=== PATIENT | male | born 1980 | race Caucasian/White ===

== ENCOUNTER 2017-12-18 05:34 | Day surgery (SDC) | payer OTHER ==
[2017-12-15 12:48] VITALS: BMI 28.0
[~2017-12-18 05:34] MED LIST: HEPARIN SODIUM,PORCINE 5,000 UNIT/ML 1 ML VIAL SQ ONE; ceFAZolin IN SWFI 2 GM/20 ML SYRINGE IVP ONE
[2017-12-18] MEDS ORDERED: fentaNYL (PF) 50 MCG/ML 2 ML AMP IV PRN (05:39)
[2017-12-18] MEDS ORDERED: MIDAZOLAM 2 MG/2 ML VIAL IV PRN (05:39)
[2017-12-18] MEDS ORDERED: ONDANSETRON 4 MG/2 ML VIAL IVP ONE (05:39)
[2017-12-18] MEDS ORDERED: DEXAMETHASONE SOD PHOSPHATE 10 MG/ML 1 ML VIAL IV ONE (05:39)
[2017-12-18] MEDS ORDERED: SCOPOLAMINE 1.5MG/72HR PATCH TRANSDERM ONE (05:39)
[2017-12-18] MEDS ORDERED: LIDOCAINE 1% 20 ML VIAL (10MG/ML) FOR IV START INTRADERMA ONE (06:38)
[2017-12-18] MEDS: LACTATED RINGERS 1,000 ML IV SCH ×2 (06:40→06:41)
--- NOTE | 2017-12-18 06:58 | P.GSHP ---
History of Present Illness H&P Date: 12/18/17 CHIEF COMPLAINT: Inguinal hernia, left HISTORY OF PRESENT ILLNESS: The patient is a 37-year-old male who presents with a history of swelling and pain along the left groin. Now he presents for repair of his inguinal hernia. PAST MEDICAL HISTORY: Please see list. PAST SURGICAL HISTORY: Please see list. MEDICATIONS: Please see list. ALLERGIES: Please see list. SOCIAL HISTORY: No illicit drug use FAMILY HISTORY: No reports of Crohn disease or ulcerative colitis. REVIEW OF ORGAN SYSTEMS: CONSTITUTIONAL: No reports of fevers or chills. No reports of weight loss despite prior attempts. GI: Denies any blood in stools or constipation. PHYSICAL EXAM: VITAL SIGNS: Stable GENERAL: Well-developed pleasant male in no acute distress. HEENT: No scleral icterus. Extraocular movements grossly intact. Moist buccal mucosa. NECK: Supple without lymphadenopathy. CHEST: Unlabored respirations. Equal bilateral excursions. CARDIOVASCULAR: Regular rate and rhythm. Distal 2+ pulses. ABDOMEN: Soft, nondistended. No peritoneal signs. Palpable defect of the left groin. MUSCULOSKELETAL: No clubbing, cyanosis, or edema. ASSESSMENT: 1. Inguinal hernia, left PLAN: 1. Recommend proceeding with a robotic inguinal repair with mesh with possible bilateral approach. 2. Benefits and risks of surgical intervention was discussed including possibility of open technique. 3. DVT prophylaxis. 4. Antibiotic prophylaxis. Past Medical History Additional Past Medical History / Comment(s): LT INGUINAL HERNIA. History of Any Multi-Drug Resistant Organisms: None Reported Past Surgical History: No Surgical Hx Reported Past Anesthesia/Blood Transfusion Reactions: No Reported Reaction Additional Past Anesthesia/Blood Transfusion Reaction / Comment(s): NO PREVIOUS ANESTHESIA Smoking Status: Current every day smoker - Past Family History Mother Family Medical History: Cancer Medications and Allergies Home Medications Medication Instructions Recorded Confirmed Type No Known Home Medications [No 12/15/17 12/18/17 History Known Home Medications] Allergies Allergy/AdvReac Type Severity Reaction Status Date / Time No Known Allergies Allergy Verified 12/18/17 06:03 Surgical - Exam Vital Signs Temp Pulse Resp BP Pulse Ox 97.9 F 81 16 150/96 99 12/18/17 06:35 12/18/17 06:35 12/18/17 06:35 12/18/17 06:35 12/18/17 06:35
[2017-12-18] MEDS ORDERED: HYDROmorphone (PF) 1 MG/ML ONE (07:00)
[2017-12-18] MEDS ORDERED: SUCCINYLCHOLINE CHLORIDE 100 MG/5 ML SYR IV ONE (07:00)
[2017-12-18] MEDS ORDERED: fentaNYL (PF) 50 MCG/ML 2 ML AMP ONE (07:00)
[2017-12-18] MEDS ORDERED: MIDAZOLAM 2 MG/2 ML VIAL ONE (07:00)
[2017-12-18] MEDS ORDERED: LIDOCAINE 1% INJ 10MG/ML (20 ML MDV) ONE (07:00)
[2017-12-18] MEDS ORDERED: GLYCOPYRROLATE 0.2 MG/ML 2 ML VIAL ONE (07:00)
[2017-12-18] MEDS ORDERED: NEOSTIGMINE 1 MG/ML 10 ML VIAL ONE (07:00)
[2017-12-18] MEDS ORDERED: ROCURONIUM BROMIDE 10 MG/ML 10 ML VIAL IV ONE (07:00)
[2017-12-18] MEDS ORDERED: KETOROLAC 30 MG/ML 1 ML VIAL ONE (07:00)
[2017-12-18] MEDS ORDERED: PROPOFOL 10 MG/ML 20 ML VIAL IV ONE (07:00)
[2017-12-18] MEDS ORDERED: BUPIVACAINE (PF) 0.25% 30 ML VIAL SQ ONE ×2 (07:37→09:16)
[2017-12-18 09:41] VITALS: TEMP 97.7
--- NOTE | 2017-12-18 09:46 | P.PCN ---
Date of Procedure: 12/18/17 Preoperative Diagnosis: Initial left inguinal hernia, type IV involving colon and intestine, incarcerated Postoperative Diagnosis: Same Procedure(s) Performed: Robotic-assisted repair of large left inguinal hernia using ventral light mesh 11.4 cm with reduction, lysis of adhesions Implants: Ventralight ST mesh 11.4 cm circular Anesthesia: GETA, local Surgeon: Sharona Arroyo Estimated Blood Loss (ml): 10 Pathology: other (Left inguinal hernia sac) Condition: stable Disposition: floor Operative Findings: 1. Incarcerated left inguinal hernia, 30 x 40 cm hernia sac
[2017-12-18] MEDS ORDERED: HYDROmorphone 0.5 MG/0.5 ML SYRINGE IVP ONE ×2 (09:47→10:06)
[2017-12-18 10:09] VITALS: RESP 16
[2017-12-18] MEDS ORDERED: LABETALOL 5 MG/ML VIAL MDV IVP ONE (10:22)
[2017-12-18] MEDS ORDERED: HYDROcodone/APAP 5-325MG 1 EACH TAB PO ONE (11:01)
[2017-12-18 11:43] VITALS: BP 145/95; PULSE 89
--- NOTE | 2018-01-10 20:37 | P.OP ---
Date of Procedure: 12/18/17 Description of Procedure: Date of Procedure: 12/18/17 SURGEON: SHARONA ARROYO MD PREOPERATIVE DIAGNOSES: 1. Left inguinal hernia, initial 2. Tobacco use. POSTOPERATIVE DIAGNOSES: 1. Initial left inguinal hernia, type IV involving colon and intestine, incarcerated and direct 2. Tobacco use. OPERATION: 1. Robotic assisted da Muriel Xi laparoscopic lysis of adhesions over 1.5 hrs. 2. Robotic assisted da Muriel Xi laparoscopic left inguinal hernia repair with ventralight ST mesh, 11.4 cm. ANESTHESIA: General with local anesthetic Implants: Ventralight ST mesh 11.4 cm circular Pathology: other (Left inguinal hernia sac) ESTIMATED BLOOD LOSS: 10 mL. SPECIMENS REMOVED: None. COMPLICATIONS: None. Operative Findings: 1. Incarcerated left inguinal hernia, 30 x 40 cm hernia sac INDICATIONS: The patient is a 37-year-old gentleman who presents with history of initial left groin hernia the size of a watermelon. Now he presents for definitive surgical intervention. Laparoscopic versus open and robotic approaches were discussed. Benefits and risks including bleeding, infection, injury to the vas deferens as well as sterility and chronic groin pain were reviewed. Placement of mesh was also described. Informed consent was obtained. DESCRIPTION: The patient was brought to the operating room and initially laid in supine position. He physically had helped reduce the very large hernia sac prior to induction. After general induction, the abdomen had been prepped and draped in standard sterile fashion. Ioban draping was also placed. Prior to incision, a timeout protocol was confirmed with surgical team regarding patient's name including procedures to be performed and location along the left groin. Initial positioning for the robotic assisted ports were selected whereby 20 cm superior to the target anatomy, 0 degree 5 mm laparoscopic trocar entry was performed at the left upper quadrant. The abdomen was insufflated to 15 mmHg which he had tolerated well. Diagnostic laparoscopy demonstrated moderate omental adhesions involving the left groin consistent with a direct hernia. Additionally the sigmoid colon was adherent to the left groin with a large direct left inguinal hernia over 5 cm in size. The right groin had less than 2 cm albeit direct inguinal hernia for which he was asymptomatic. Next, along the epigastrium, 8 mm robot trocar was placed. An 8-mm robotic trocar was placed under direct visualization at the right upper quadrant. The 5 mm port was exchanged for an 8 mm trocar. All trocars were positioned 8 to 10-cm from each other. The [employer] XI robot was primed, draped, prepared for docking along the left side of the patient. I then went to the [employer] console. The warehouse administrative assistant was at bedside for exchange of the robot arms and equipment. Attention was brought to the left groin where peritoneal adhesions were identified incorporating the greater omentum and addressed using sharp dissection with a scissor and cautery for over 30 minutes. At the left groin, over 5 cm direct inguinal hernia was identified. To address the extremely large left inguinal hernia, external pressure was placed along the left scrotal and groin by the surgical instrument repair specialist. The hernia sac extended to the ascending the left scrotum. Extensive lysis of adhesions over 1.5 hours was performed to completely reduce and excise the hernia sac. The hernia sac was evaginated whereby the peritoneum was scored using Endo scissors with cautery. The hernia sac had reached to the scrotum and was transected using Ligasure. Once completely reduced into the abdominal cavity, the peritoneal sac of the hernia was stripped without a lipoma identified. The sac was resected and then passed off for further pathological analysis. The size of the hernia defect was 5 cm with intraoperative films obtained. Using a 2-0 VLOC, the peritoneal defect of the left inguinal hernia site was closed using a purse string suture. The defect was found to be completely closed with complete reduction of the left inguinal hernia was confirmed. As an onlay, an 11.[address] mesh by [employer] was entered into the abdominal cavity via the 8 mm trocar. The mesh was tacked to the pelvis using 2 -0 VLOC x 9-inch length sutures. The robot was undocked from the patient's bedside. I then rescrubbed into the case. Insufflation was released from the abdominal cavity and all instruments were removed from the abdominal cavity. Additional palm pressure was applied along the left groin as well as releasing any air along the scrotum and left groin. The rest of incisions were reapproximated using 4-0 Monocryl in a running subcuticular fashion. Local anesthetic was placed along the incision including for a groin block. Incisions were cleansed using dilute hydrogen peroxide. Liquid was applied to the skin. A jockstrap was placed. At the end of the procedure, the needle, sponge and instrument counts had been verified correct by the surgical instrument repair specialist. The patient had tolerated the procedure well and was taken to the postanesthesia care unit in stable condition. Plan - Discharge Summary New Discharge Prescriptions: New Docusate [Colace] 100 mg PO DAILY #20 capsule HYDROcodone/APAP 5-325MG [[place] 5-325] 1 tab PO Q4HR PRN 3 Days #18 tab PRN Reason: Pain Discharge Medication List Docusate [Colace] 100 mg PO DAILY #20 capsule 12/18/17 [Rx] HYDROcodone/APAP 5-325MG [[place] 5-325] 1 tab PO Q4HR PRN 3 Days #18 tab [Rx] Follow up Appointment(s)/Referral(s): Sharona Arroyo MD [STAFF PHYSICIAN] - 12/24/17 10:15 am Patient Instructions/Handouts: *Surgery [facility] - (Anesthesia) Discharge Instructions Outpatient Surgery, Laparoscopic Herniorrhaphy (DC), Inguinal Hernia (GEN), Inguinal Hernia Repair (DC) Activity/Diet/Wound Care/Special Instructions: No lifting over 4 pounds in 4 weeks. Wear scrotal support daily. Expect swelling and bruising. May shower. No bath tub soaks. Discharge Disposition: HOME SELF-CARE
== END 2017-12-18 12:02 | disposition home or self-care (01) ==
LOC: OR 05:34
PROVIDERS: ATTEND Surgery Plastic and Reconstructive Surgery
DX: K40.30 Unilateral inguinal hernia, with obstruction, without gangrene, not specified as recurrent (principal); K66.0 Peritoneal adhesions (postprocedural) (postinfection); F17.210 Nicotine dependence, cigarettes, uncomplicated
CPT/HCPCS: 49650; S2900; 88302

== ENCOUNTER → 2018-01-05 | Outpatient (CLI) | payer OTHER ==
--- NOTE | 2018-01-06 08:32 | CT ---
EXAMINATION TYPE: CT pelvis wo con DATE OF EXAM: 01/05/2018 COMPARISON: NONE HISTORY: recent hernia repair, c/o swelling and fluid retention CT DLP: 883 mGycm Automated exposure control for dose reduction was used. FINDINGS: Loops of bowel without oral contrast are unremarkable. The appendix is normal and air-filled. Urinary bladder appears normal. Prostate contains calcification. There is a large left inguinal hernia containing mesenteric fat. Fluid is within the lower portion of single hernia extending towards the left hemiscrotum. This appears fluid like and abscess is conside red unlikely. There are scattered small inguinal lymph nodes present bilaterally. The osseous structures appear normal. IMPRESSION: LEFT INGUINAL HERNIA WITH MESENTERIC FAT. BOWEL IS NOT IDENTIFIED IN HERNIA. THERE IS A LARGE FLUID C OLLECTION EXTENDING INTO THE LEFT HEMISCROTUM.
== END | disposition home or self-care (01) ==
LOC: RADCTMAIN 18:00
PROVIDERS: ATTEND Surgery Plastic and Reconstructive Surgery
DX: K40.90 Unilateral inguinal hernia, without obstruction or gangrene, not specified as recurrent (principal); N50.89 Other specified disorders of the male genital organs
CPT/HCPCS: 72192

== ENCOUNTER 2018-01-21 08:49 | Day surgery (SDC) | payer OTHER ==
[2018-01-21 09:25] VITALS: RESP 16; TEMP 98
[2018-01-21] MEDS ORDERED: ALPRAZolam 0.5 MG TAB PO STA (09:29)
[2018-01-21 10:22] VITALS: BP 160/104; PULSE 73
--- NOTE | 2018-01-21 10:24 | US ---
ULTRASOUND GUIDED FNA LEFT GROIN SEROMA: CLINICAL HISTORY: Postoperative seroma FINDINGS: The procedure was explained to the patient. The risks, complications, benefits and alternatives were discussed and any questions were answered. Informed consent was obtained. Patient was placed supin e on the ultrasound table and prepped and draped in the usual sterile fashion. Utilizing a 20 gauge needle, 80 cc of serous fluid was aspirated. Note is made that the collection appears to be complex w ith numerous septations suggestive of organizing seroma. Patient was stable throughout the procedure. Pathology is pending. All elements of maximal barrier and sterile technique were utilized. IMPRESSION: 1. Successful ultrasound guided FNA left groin seroma aspiration.
== END 2018-01-21 10:32 | disposition home or self-care (01) ==
LOC: RADPROMAIN 08:49
PROVIDERS: ATTEND Surgery Plastic and Reconstructive Surgery
DX: S30.22XA Contusion of scrotum and testes, initial encounter (principal)
CPT/HCPCS: 10022; 76942